=== PATIENT | female | born 1995 | race Caucasian/White ===

== ENCOUNTER 2025-02-01 14:10 | Emergency (ER) | payer OTHER ==
[~2025-02-01] VITALS: Ht 172.7 cm; Wt 54.4 kg
[2025-02-01] MEDS ORDERED: IBUPROFEN 600 MG TABLET ONE (15:06)
[2025-02-01] MEDS: IBUPROFEN 600 MG TABLET PO ONE (15:10)
[2025-02-01] MEDS: IV NS 0.9% 1,000 ML BAG IV ONE (15:15)
[2025-02-01 16:00] VITALS: BP 121/61; TEMP 98; O2SAT 98
[2025-02-01] MEDS ORDERED: ONDA4TAB5 PO (17:39)
[2025-02-01] MEDS ORDERED: IBUP-1490 PO (17:39)
== END 2025-02-01 18:05 | disposition home or self-care (01) ==
LOC: ER 14:18
DX: R51.9 Headache, unspecified (principal); R55 Syncope and collapse; M54.2 Cervicalgia; R11.2 Nausea with vomiting, unspecified; R07.9 Chest pain, unspecified; R61 Generalized hyperhidrosis; Z60.2 Problems related to living alone; W18.39XA Other fall on same level, initial encounter; Y93.89 Activity, other specified; Y92.89 Other specified places as the place of occurrence of the external cause; Y99.8 Other external cause status
CPT/HCPCS: 99283; 96360; 71045; 93005; J7030